=== PATIENT | male | born 2000 | race Caucasian/White ===

== ENCOUNTER 2024-09-25 22:15 | Emergency (ER) | payer BC, SELFPAY ==
[2024-09-25 22:17] VITALS: BP 142/102
--- NOTE | 2024-09-25 23:14 | EDRN ---
BCARES at bedside talking with patient.
--- NOTE | 2024-09-25 23:46 | ED.GENMED ---
History of Present Illness
General
Chief Complaint: Alcohol Problem
Source: patient
Exam Limitations: none
Time Seen by Provider: 09/25/24 23:15
Nursing documentation reviewed up to this point in time: agreed with
History of Present Illness
History of Present Illness:
see MDM
Past History
Past History
ED Past Medical History: Other (alcoholism)
Social History
Tobacco: Vaping
Alcohol: Daily
Review of Systems
Review of Systems
Allergies reviewed?: Yes
All Other Systems: Not applicable
Phy Exam
Physical Exam
Physical Exam:
GENERAL: Alert , in no apparent distress, alcohol on breath
EYE: pupils equal and reactive
NECK: Supple
ENT: o/p clr, dry lips
CARDIAC: Regular rate and rhythm .
LUNGS: Clear breath sounds bilaterally, no acute respiratory distress, no wheezes/rales/rhonchi
ABDOMEN: Soft, without focal tenderness, no r/g, no cvat, normal bowel sounds
NEUROLOGICAL: Alert and oriented, no focal neuro deficits no tremor
SKIN: Warm and dry, skin intact.
MUSCULOSKELETAL: No edema, well perfused. neg angeline's sign
PSYCH: Normal and appropriate interaction.
Scores
Withdrawal Assessment of Alcohol
Withdrawal Assessment Completed?: Yes
Nausea and Vomiting: Mild nausea with no vomiting
Tactile Disturbances: None
Tremor: No tremor
Auditory Disturbances: Not present
Paroxysmal Sweats: No sweat visible
Visual Disturbances: Not present
Anxiety: Mild anxiety
Headache, Fullness in Head: Not present
Agitation: Normal activity
Orientation and clouding of sensorium: Oriented and can do serial additions
Total CIWA Score: 2
Alcohol Withdrawal Medication Recommendation: Equal to MSAS Score 0-4. Monitor & re-assess q2hrs, NO MEDICATION NEEDED
Course
Orders/Labs/Results
Orders:
Orders
09/25/24 23:43
Alcohol Urgent
Complete Blood Count/No Diff Urgent
Comprehensive Metabolic Panel Urgent
Lipase Urgent
Thiamine Injection 100 mg IV NOW STA
09/25/24 23:45
Electrocardiogram (*1) Urgent
Reason for Study: Bradycardia / Tachycardia
EKG- Treatment ONCE
Urinalysis Reflex To Culture Urgent
Date Specimen was Collected: 09/25/24
Time Specimen was Collected: 23:46
Urine Drug Abuse Screen Urgent
Date Specimen was Collected: 09/25/24
Time Specimen was Collected: 23:46
Dextrose 5%/0.9%Sodchl 1000 ml [D5/0.9% Sodium Chloride] 1,000 ml IV 1,000 mls/hr
Dextrose 5%/0.9%Sodchl 1000 ml [D5/0.9% Sodium Chloride] 1,000 ml IV Wide Open mls/hr
09/26/24 03:08
Oxazepam [Serax] 15 mg PO NOW STA
09/26/24 03:14
Oxazepam [Serax] 15 mg PO NOW STA
09/26/24 00:01
09/26/24 00:01
Vital Signs
Initial and Last Documented VS:
Initial Vital Signs
Temp Pulse Resp BP
37.1 C 115 18 142/102
09/25/24 22:17 09/25/24 22:17 09/25/24 22:17 09/25/24 22:17
Last Documented Vital Signs
Temp Pulse Resp BP Pulse Ox
37.1 C 105 19 122/77 96
09/25/24 22:17 09/26/24 01:30 09/26/24 01:30 09/26/24 01:00 09/26/24 01:30
MDM/Problems Addressed
Differential Diagnosis Includes:
see MDM
MDM/Problems Addressed:
Note:
CHIEF COMPLAINT(S)
Alcohol detox request.
HISTORY OF PRESENT ILLNESS
The patient is a 23-year-old male presenting with a request for alcohol detoxification. The patient reports a history of heavy alcohol use for approximately one year, which has included two previous hospital detoxifications and two inpatient
rehabilitation programs. The first detox occurred in August 2023, with subsequent rehabilitation in June and July 2024. The patient relapsed approximately mid-August. He currently consumes an average of eight to ten 12-ounce cans of beer daily of high
percentage alcohol (IPAs), equating to 16 to 20 standard drinks. He reports drinking throughout the day, starting around 7 a.m.
He denies current withdrawal symptoms but states that shakes occur a few hours after cessation of drinking. He vomited once this morning after drinking water but was able to keep alcohol down subsequently. He denies any history of alcohol withdrawal
seizures but has experienced severe shakes in the past. Additionally, the patients liver enzymes have previously been noted to be elevated during detoxification.
The patient has a hard time eating and mainly consumes liquid calories like mass gainers and protein shakes. He denies experiencing hallucinations currently but has in the past during withdrawal episodes. His last drink was around 6 to 9 p.m.
He denies any chronic medication use.
ADDITIONAL HISTORY OBTAINED FROM SOURCES OTHER THAN THE PATIENT
According to the patient�s reports, his prior detoxifications took place at [facility], and his inpatient treatments were completed at [facility].
[employer] AFFECTING HEALTH
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 He reports regular vaping of nicotine but denies the use of illegal substances.
PHYSICAL EXAM
- Nursing notes reviewed and vital signs reviewed.
- The patient appeared clinically stable with no signs of acute distress noted.
alcohol on breath
otherwise no signs of withdrawal
clear lungs
no longer tachycardic
no hepatomegaly
nontender abdomen
PLAN
The patient will receive IV fluids and medications for withdrawal management. Blood work will be obtained to assess liver function and other relevant parameters. The patient will be monitored for the onset of withdrawal symptoms and given
appropriate medication as needed.
DIFFERENTIAL DIAGNOSIS
The Differential Diagnosis includes, in no particular order and is not limited to:
1. Alcohol withdrawal syndrome
2. Alcohol use disorder
3. Hepatic dysfunction (secondary to alcohol use)
4. Dehydration
5. Malnutrition
6. Electrolyte imbalance
7. Anxiety disorder
8. Depression
9. Gastroesophageal reflux disease
10. Nutritional deficiency
0200-pt still appears stable; no shakes
vitals improved
labs reviewed, laochol level 316
otherwise no findings concerning
pt seen by Lzibeth mendez for alcohol detox placement
meets criteria for detox at facility and not in hospital
pt was not satisfied with this because of his job, he doesn't want to lose it; mom is here with him and unfortunately continued to bring up that he may lose his job if he goes to detox tonight
pt has had success with serax before, he says kelley the doesn't wish to drink
d/w ed attending dr. mitchell
ok to d/c with dose here; has been 7 hours [facility] elast drink and pt awake and alert
*Pulse Oximetry
Patient hypoxic: no (96)
*Critical Care Note
Total Time (30-74mins, 75-104mins- exclusive of procedures): Not Applicable
ED Attending Note
-
Portions of this chart may have been created with voice recognition software.� Occasional wrong word or��sound alike� substitutions may have occurred due to the inherent limitations of voice recognition software.
Discharge Plan
Departure
Patient Disposition: Home (Routine Discharge)
Date of Disposition: 09/26/24
Time of Disposition: 03:10
Patient with high blood pressure during this ER visit?: No
Condition: Fair
Covid-19: Not Applicable
Discharge Problem:
Alcohol abuse
Instructions: Alcohol Use Disorder (DC)
Prescriptions:
New
oxazepam 15 mg capsule
15 mg PO TID PRN (Reason: alcohol withdrawal) Qty: 16 0RF
Referrals:
Antonio Peacock, DO [Family Provider, [facility]] - Follow up in 2-3 days
Activity Restrictions/Additional Instructions:
We have found you a bed for an inpatient detox you have opted to decline. Your blood work was unremarkable other than the alcohol level.
You can try oxazepam 15 mg every 6 hours, that is 3 times a day as needed for the next 2 to 3 days for your alcohol withdrawal symptoms.
Should you have any significant shakiness, vomiting, confusion, headache etc. during this you should return to the ER. Please do not mix alcohol with this medication. Good luck on your recovery
Interventions
Interventions:
*Risk Screen - Suicide Last Done: 09/25/24 22:23
*General Assessment Last Done: 09/26/24 00:17
*Neglect/Abuse Screening Last Done: 09/25/24 22:23
*ED- Fall Risk Assessment Last Done: 09/26/24 00:17
*ED COVID-19 Vaccine History Last Done: 09/26/24 00:17
ED- Neurological Assessment Last Done: 09/26/24 00:17
ED-Psychological Assessment Last Done: 09/26/24 00:17
Discharge Date and Time
Print Language: SIERRA LEONEAN
[2024-09-26] VITALS: BP 126/86
[2024-09-26 00:01] VITALS: BMI 21.2
[2024-09-26] MEDS: THIAMINE INJECTION 100 MG IV (00:05)
[2024-09-26] MEDS: D5/0.9% SODIUM CHLORIDE 1000 IV (00:06)
[2024-09-26 00:27] LABS: Hematocrit 47.4 % (39.0-52.0); Hemoglobin 16.5 g/dL (13.0-18.0); Mean Corp Hgb Conc. 34.8 g/dL (33.0-37.0); Mean Corpuscular Volume 89.1 fL (80.0-94.0); Mean Platelet Volume 9.7 fL (7.4-10.4); Platelet Count 256 10^3/uL (130-400); Red Blood Cell Count 5.32 10^6/uL (4.70-6.10); Red Cell Dist. Width 12.6 % (11.5-14.5); White Blood Cell Count 5.6 10^3/uL (4.8-10.8)
[2024-09-26 00:36] LABS: ALT (SGPT) 43 U/L (0-50); AST (SGOT) 44 U/L (17-59); Alkaline Phosphatase 64 U/L (38-126); Blood Urea Nitrogen 9 mg/dl (9-20); Calcium 9.1 mg/dl (8.4-10.2); Carbon Dioxide 23 mmol/L (22-30); Chloride 106 mmol/L (98-107); Estimated Creatinine Clearance 87 ml/min; Glucose 93 mg/dl (70-99); Lipase 59 U/L (23-300); Potassium 4.4 mmol/L (3.5-5.1); Sodium 144 mmol/L (135-145); Total Bilirubin 0.5 mg/dl (0.2-1.3); eGFR > 60.00
[2024-09-26 00:44] LABS: Alcohol 319 mg/dl
[2024-09-26 01:00] VITALS: BP 122/77
--- NOTE | 2024-09-26 01:05 | EDRN ---
BCARES back in at bedside talking with patient
[2024-09-26 02:00] VITALS: BP 131/85
--- NOTE | 2024-09-26 03:12 | EDRN ---
Patient decided to not go inpatient and will be going home with mom, patient and KERVIN Ramirez did have a discussion about plan [facility] his.
[2024-09-26] MEDS: SERAX 15 MG PO (03:23)
== END 2024-09-26 03:51 | disposition home or self-care (01) ==
LOC: EMR 22:15
PROVIDERS: Physician Assistant; EMERGENCY PHYSICIAN Emergency Medicine; FAMILY PHYSICIAN Family Medicine
DX: F10.10 Alcohol abuse, uncomplicated (principal); F17.290 Nicotine dependence, other tobacco product, uncomplicated
CPT/HCPCS: 99283; 96374; 96361; 80053; 82077; 83690; 85027; 93005